=== PATIENT | female | born 1950 | race Caucasian/White ===

== ENCOUNTER → 2017-03-08 | Outpatient (CLI) | payer MEDICARE, OTHER | LOC: COL.RAD 13:00 | DX: M48.06 Spinal stenosis, lumbar region (principal); M51.36 Other intervertebral disc degeneration, lumbar region ==

== ENCOUNTER → 2017-12-28 | Outpatient (REF) | LOC: ZLAB.WCH 08:30 | DX: Z01.89 Encounter for other specified special examinations (principal) ==

== ENCOUNTER → 2018-04-12 | Outpatient (REF) | LOC: ZLAB.WCH 08:34 | DX: Z01.89 Encounter for other specified special examinations (principal) ==